=== PATIENT | female | born 1945 | race Hispanic/Latino ===

== ENCOUNTER → 2019-03-27 | Outpatient (CLI) | payer OTHER, MEDICARE | END | disposition home or self-care (01) | LOC: OIH 13:33 | PROVIDERS: ATTEND Internal Medicine | DX: M13.832 Other specified arthritis, left wrist (principal); M13.831 Other specified arthritis, right wrist; M81.0 Age-related osteoporosis without current pathological fracture; M20.11 Hallux valgus (acquired), right foot; M13.872 Other specified arthritis, left ankle and foot; M13.871 Other specified arthritis, right ankle and foot; M06.4 Inflammatory polyarthropathy | CPT/HCPCS: 73130; 73630 ==